=== PATIENT | male | born 1965 | race Caucasian/White ===

== ENCOUNTER 2017-05-29 07:24 | Day surgery (SDC) | payer OTHER ==
[~2017-05-29] VITALS: Ht 180.3 cm; Wt 88.5 kg
[~2017-05-29 07:24] MED LIST: ALLOPURINOL100 MG PO; AUGMENTIN 875-1 EACH PO; BACTRIM DS TAB1 EACH PO; CLINDAMYCIN HC300 MG PO; DILTIAZEM 24HR240 MG PO; DRISDOL50000 UNIT PO; IBUPROFEN600 MG PO; KEFLEX500 MG PO; LEVOTHYROXINE88 MCG PO; LISINOPRIL20 MG PO; NORCO 10-325 T1 EACH PO; NORCO 5-325 TA1 EACH PO; SENEXON-S TABL1 EACH PO; SIMVASTATIN40 MG PO; TERBINAFINE15 GM TOP; ZOCOR40 MG PO; ZYLOPRIM300 MG PO
--- NOTE | 2017-05-29 09:09 | NUR ---
05/29/17 0908 Heidy Rodriguez PT ARRIVED TO PACU, DENINES ANY NAUSEA OR PAIN. PT ABD IS SOFT AND ROUND. PT MAINTAINING AIRWAY.
--- NOTE | 2017-05-29 09:56 | NUR ---
PT HAVING FIRST SCOPE-ROUTINE. HE IS ALERT,ORIENTED AND APPEARS TO HANDLE PREP DAY APPROPRIATELY. PT HAD FEW QUESTIONS, REQUESTED PRAYER. WILL FOLLOW NEEDED
--- NOTE | 2017-05-31 08:29 | OR ---
[facility] [address] [place], [place] [address] Signed DATE OF PROCEDURE: 05/29/17 PREOPERATIVE DIAGNOSIS Maternal grandfather with history of colon cancer in his 70s. POSTOPERATIVE DIAGNOSES A 4 mm polyp at 12 cm. Minimal internal hemorrhoids. PROCEDURE: Colonoscopy without biopsy. ESTIMATED BLOOD LOSS: None. INDICATIONS Vadim carbajal s a 52-year-old gentleman who was asked to see me for his initial colonoscopy. He explained that his maternal grandfather developed colon cancer in his 70s. Donald has no lower GI complaints. I gave him a pamphlet in the office on colonoscopy and we discusse d the nature of the test along with the risks including, but not limited to gas, bloating, crampy abdominal pain, bleeding perforation, requiring surgery, and missed diagnosis. We also discussed the need for IV conscious sedation. He had expressed understa nding wished to proceed. PROCEDURE NOTE Donald was taken into our endoscopy suite and placed in the left lateral decubitus position. He was given IV sedation with 8 mg of Versed and 100 mcg of Fentanyl. A digital rectal exam was performed and this was unremarkable. His prostate is just starting to show a little induration a little increase in size at the age of 52. The adult colonoscope was then introduced and advanced all around into the cecum under direct visualization of the camera without difficult y . His prep was good. The scope was then slowly withdrawn. He had no pathology throughout the entire colon or rectum. Once in the rectum, we did see just a small 4 mm polyp at 12 cm. It was easily removed with hot biopsy forceps. After this, the scope had been retroflexed and he has very minimal standard internal hemorrhoid columns. The gas was then suctioned out. The colonoscope removed. Donald tolerated the procedure quite well. RECOMMENDATIONS Donald will follow up in my office in 7 to 14 days to review his results. He should consider a colonoscopy every 5 years due to his family history. Electronically Signed By: MINERVA MONIQUE MD 05/31/17 0829 PATIENT NAME: VADIM VELASQUEZ OPERATIVE REPORT DATE OF : 69 PHYSICIAN: MINERVA MONIQUE MD REPORT #: [id number] REPORT IS CONFIDENTIAL AND NOT TO BE RELEASED WITHOUT AUTHORIZATION [address], [place] [address] Signed MD BREANNE Amezcua/Modl /[id number] cc: Juan Carlos Brunner MD Electronically Signed By: MINERVA MONIQUE MD 05/31/17 0829 PATIENT NAME: VADIM VELASQUEZ OPERATIVE REPORT DATE OF : 69 PHYSICIAN: MINERVA MONIQUE MD REPORT #: [id number] REPORT IS CONFIDENTIAL AND NOT TO BE RELEASED WITHOUT AUTHORIZATION
== END 2017-05-29 09:45 | disposition home or self-care (01) ==
LOC: OPS 07:24 → DS 07:24 → OPS 09:15 → DS 09:45
PROVIDERS: Colon & Rectal Surgery
PROC: 0DBE8ZX Excision of Large Intestine, Via Natural or Artificial Opening Endoscopic, Diagnostic (ICD-10-PCS; principal; 2017-05-29 09:15)
DX: Z12.11 Encounter for screening for malignant neoplasm of colon (principal); K64.8 Other hemorrhoids; I10 Essential (primary) hypertension; E78.5 Hyperlipidemia, unspecified; E03.9 Hypothyroidism, unspecified; M10.9 Gout, unspecified; E55.9 Vitamin D deficiency, unspecified; Z98.818 Other dental procedure status; Z90.89 Acquired absence of other organs; Z98.890 Other specified postprocedural states
CPT/HCPCS: 99152; 99153; J2250; J3010